=== PATIENT | female | born 1955 ===

== ENCOUNTER → 2017-02-24 | Outpatient (REF) ==
[2017-02-24 20:46] LABS: TOTAL IRON BINDING CAPACITY 312 ug/dL (265-497)
[2017-02-24 21:12] LABS: FERRITIN 81 ng/mL (11-264)
== END ==
LOC: ZLAB.WCH 19:26
PROVIDERS: Internal Medicine Nephrology
DX: Z01.89 Encounter for other specified special examinations (principal)

== ENCOUNTER → 2018-09-01 | Outpatient (REF) ==
[2018-09-01 17:22] LABS: IRON,SERUM 50 ug/dL (35-150)
[2018-09-01 17:31] LABS: TOTAL IRON BINDING CAPACITY 246 ug/dL (265-497)
[2018-09-01 18:00] LABS: FERRITIN 615 ng/mL (11-264)
== END ==
LOC: ZLAB.WCH 16:31
PROVIDERS: Internal Medicine Nephrology
DX: Z01.89 Encounter for other specified special examinations (principal)